=== PATIENT | male | born 1980 | race Caucasian/White ===

== ENCOUNTER → 2023-08-18 10:38 | Outpatient (BNVA) | payer SELFPAY | PROVIDERS: Family Provider Nurse Practitioner; PCP Nurse Practitioner Family; Visit Provider Nurse Practitioner Family | DX: Z79.899 Other long term (current) drug therapy (principal); R53.83 Other fatigue; E11.9 Type 2 diabetes mellitus without complications; Z13.6 Encounter for screening for cardiovascular disorders; H66.90 Otitis media, unspecified, unspecified ear; R68.89 Other general symptoms and signs | CPT/HCPCS: 80053; 80061; 81003; 82306; 83036; 84439; 84443; 84481; 85025; 87400; 87426 ==